=== PATIENT | female | born 1985 | race African-American/Black ===

== ENCOUNTER 2016-12-11 02:19 | Emergency (ER) | payer MEDICAID, OTHER ==
[~2016-12-11] VITALS: Ht 170.2 cm; Wt 68.0 kg
[~2016-12-11 02:19] MED LIST: IBUPROFEN
[2016-12-11] MEDS ORDERED: KETOROLAC 60MG/2ML VIAL IM ONE (07:45)
[2016-12-11] MEDS ORDERED: TRAMADOL 50MG TABLET PO ONE (09:45)
[2016-12-11 10:10] LABS: CLARITY URINE CLOUDY (CLEAR); COLOR URINE YELLOW (YELLOW); GLUCOSE URINE NEGATIVE (NEGATIVE); KETONES URINE NEGATIVE (NEGATIVE); LEUKOCYTE ESTERASE URINE 2+ (NEGATIVE); NITRITE URINE NEGATIVE (NEGATIVE); OCCULT BLOOD URINE NEGATIVE (NEGATIVE); PH URINE 5.5 (4.5-8.0); PROTEIN URINE NEGATIVE (NEGATIVE); SPECIFIC GRAVITY URINE 1.037 (1.005-1.030)
[2016-12-11 10:31] VITALS: BP 109/52
== END 2016-12-11 11:36 | disposition home or self-care (01) ==
LOC: ER 02:19
DX: G89.29 Other chronic pain (principal); M54.5 Low back pain; Z86.61 Personal history of infections of the central nervous system; Z88.8 Allergy status to other drugs, medicaments and biological substances; R51 Headache
CPT/HCPCS: 81001; 96372; 99283; J1885

== ENCOUNTER 2018-02-20 04:06 | Emergency (ER) | payer OTHER ==
[~2018-02-20] VITALS: Ht 165.1 cm; Wt 72.7 kg
[2018-02-20] MEDS ORDERED: ASPIRIN 81MG TABLET PO ONE (04:30)
[2018-02-20 04:42] LABS: BASOPHILS % 0.3 % (0.0-2.0); EOSINOPHILS % 0.8 % (0.0-5.0); HEMATOCRIT. 41.9 % (36.0-48.0); HEMOGLOBIN. 13.8 g/dL (12.0-16.0); LYMPHOCYTES % 31.1 % (20.0-50.0); MEAN CORPUSCULAR HEMOGLOBIN 30.5 pg (28.0-32.0); MEAN CORPUSCULAR VOLUME 92.7 fL (81.0-99.0); MEAN PLATELET VOLUME 8.4 fl (7.4-10.4); MONOCYTES % 5.6 % (2.0-8.0); NEUTROPHILS % 62.2 % (40.0-76.0); PLATELET 264 x1000/uL (130-400); RED BLOOD CELL COUNT 4.53 mill/uL (4.2-5.4); RED CELL DISTRIBUTION WIDTH 13.2 % (11.6-14.6)
[2018-02-20 04:49] LABS: CHLORIDE 101 mEq/L (98-107)
[2018-02-20 05:43] VITALS: BP 107/84
== END 2018-02-20 05:45 | disposition home or self-care (01) ==
LOC: ER 04:19
DX: F41.9 Anxiety disorder, unspecified (principal); R07.89 Other chest pain; Z88.8 Allergy status to other drugs, medicaments and biological substances; Z79.899 Other long term (current) drug therapy
CPT/HCPCS: 36415; 71045; 80053; 81025; 84484; 85025; 93005; 99285

== ENCOUNTER 2019-12-03 20:34 | Emergency (ER) | payer OTHER ==
[~2019-12-03] VITALS: Ht 170.2 cm; Wt 99.8 kg
[2019-12-03] MEDS ORDERED: LORAZEPAM 0.5MG TABLET PO ONE (21:45)
[2019-12-03 22:24] VITALS: BP 101/58
== END 2019-12-03 22:26 | disposition home or self-care (01) ==
LOC: ER 20:34
DX: F41.1 Generalized anxiety disorder (principal); H66.90 Otitis media, unspecified, unspecified ear; Z88.8 Allergy status to other drugs, medicaments and biological substances
CPT/HCPCS: 99283